=== PATIENT | male | born 1985 | race Caucasian/White ===

== ENCOUNTER 2023-10-30 06:03 | Day surgery (SDC) | payer SELFPAY ==
[2023-10-28 10:12] LABS: BASOPHILS # (AUTO) 0.04 K/uL (0.00-0.20); BASOPHILS % (AUTO) 0.6 % (0.0-5.0); EOSINOPHILS % (AUTO) 1.4 % (0.0-8.0); HEMATOCRIT 45.4 % (42-54); IMMATURE GRANULOCYTE ABSOLUTE 0.05 K/uL (0-1); LYMPHOCYTES # (AUTO) 2.2 K/uL (1.0-4.8); LYMPHOCYTES % (AUTO) 30.9 % (21.0-51.0); MEAN CORPUSCULAR HEMOGLOBIN 30.7 pg (27.0-33.0); MEAN CORPUSCULAR HGB CONC 33.9 g/dL (32.0-36.0); MEAN CORPUSCULAR VOLUME 90.4 fL (79-99); MONOCYTES # (AUTO) 0.4 K/uL (0.1-1.0); MONOCYTES % (AUTO) 5.8 % (3.0-13.0); NEUTROPHILS # (AUTO) 4.4 K/uL (1.8-7.7); NEUTROPHILS % (AUTO) 60.6 % (40.0-77.0); PLATELET COUNT (AUTO) 253 K/uL (130-400); RED BLOOD CELL COUNT(AUTO) 5.02 MIL/uL (4.50-6.20); RED CELL DISTRIBUTION WIDTH 12.3 % (11.0-15.5); WHITE BLOOD COUNT (AUTO) 7.3 K/uL (4.8-10.8)
[2023-10-28 10:19] VITALS: BP 177/90; PULSE 73; RESP 18
[2023-10-28 10:26] LABS: CREATININE 0.7 mg/dL (0.5-1.5); POTASSIUM 3.8 mmol/L (3.5-5.1)
[2023-10-30] VITALS (21 sets, daily range): BP systolic 113–150; BP diastolic 59–89; PULSE 78–98; RESP 10–18
[~2023-10-30] VITALS: Ht 182.9 cm; Wt 154.1 kg
[2023-10-30] MEDS ORDERED: CEFAZOLIN SODIUM 1 GM VIAL ONE (06:19)
[2023-10-30] MEDS ORDERED: LACTATED RINGERS 1000ML 1,000 ML IV ONE (06:20)
[2023-10-30] MEDS ORDERED: LIDOCAINE PF 100MG/5ML (2%) SYRINGE 5ML ONE (07:28)
[2023-10-30] MEDS ORDERED: ROCURONIUM BROMIDE 10MG/1ML 5ML VL ONE ×2 (07:29→09:18)
[2023-10-30] MEDS ORDERED: MIDAZOLAM HCL 1 MG/ML 2ML VIAL ONE (07:29)
[2023-10-30] MEDS ORDERED: FENTANYL CITRATE PF 50 MCG/1 ML 2ML VIAL ONE ×3 (07:29→11:35)
[2023-10-30] MEDS ORDERED: PROPOFOL 10 MG/ML 20ML VIAL IV ONE (07:29)
[2023-10-30] MEDS ORDERED: ONDANSETRON 4MG INJ ONE (07:32)
[2023-10-30] MEDS ORDERED: DEXAMETHASONE SOD PHOSPHATE 10MG/ML 1ML VIAL ONE (07:32)
[2023-10-30] MEDS ORDERED: ROPIVACAINE 0.5% 5MG/ML 30ML ONE (07:33)
[2023-10-30] MEDS ORDERED: NEOSTIGMINE METHYLSULFATE 1MG/ML IV ONE (11:06)
[2023-10-30] MEDS ORDERED: GLYCOPYRROLATE 1 MG/5 ML SYRINGE ONE (11:06)
[2023-10-30] MEDS ORDERED: KETOROLAC 30MG VIAL (30MG/ML) ONE (11:11)
[2023-10-30] MEDS ORDERED: ASPI-1012 PO (11:41)
[2023-10-30] MEDS ORDERED: CYCL5TAB PO (11:41)
[2023-10-30] MEDS ORDERED: DOCU-116 PO (11:41)
[2023-10-30] MEDS ORDERED: HYDR-4060 PO (11:41)
[2023-10-30] MEDS ORDERED: MEPERIDINE-PF 50 MG/ML SYG ONE (12:27)
== END 2023-10-30 14:55 | disposition home or self-care (01) ==
LOC: DAH 06:03
PROVIDERS: ATTEND Student in an Organized Health Care Education/Training Program
DX: S76.111A Strain of right quadriceps muscle, fascia and tendon, initial encounter (principal); G89.29 Other chronic pain; E66.01 Morbid (severe) obesity due to excess calories; Z79.899 Other long term (current) drug therapy; Z90.49 Acquired absence of other specified parts of digestive tract; Z82.49 Family history of ischemic heart disease and other diseases of the circulatory system; Z72.89 Other problems related to lifestyle; W10.8XXA Fall (on) (from) other stairs and steps, initial encounter; Y93.89 Activity, other specified; Y92.89 Other specified places as the place of occurrence of the external cause; Y99.8 Other external cause status; Z68.42 Body mass index [BMI] 45.0-49.9, adult
CPT/HCPCS: 80048; 85025; 36415; 27385; 97161; 73560; 97530 ×2; 97116; 64447; A4663; J7120 ×2; J3010 ×3; J0690; J3490 ×3; J1100; J2001; J2250; J2704; J2405; J1885; J2710; J2175; J2795; A6223; A4649; A5120; A4215; A4223; A4222; A4221; G8980-CI; G8983-CJ